=== PATIENT | female | born 1995 | race African-American/Black ===

== ENCOUNTER 2022-12-23 07:18 | Emergency (ER) | payer MEDICAID, OTHER ==
[~2022-12-23] VITALS: Ht 154.9 cm; Wt 94.3 kg
[2022-12-23 07:22] VITALS: BP 124/71; PULSE 89; RESP 16; O2SAT 98
[2022-12-23 08:15] VITALS: TEMP 98.2
[2022-12-23] MEDS ORDERED: ACETAMINOPHEN 325MG TABLET PO NR (08:15)
== END 2022-12-23 10:27 | disposition home or self-care (01) ==
LOC: ER 07:18
DX: B34.9 Viral infection, unspecified (principal); J45.909 Unspecified asthma, uncomplicated; Z88.2 Allergy status to sulfonamides; Z86.59 Personal history of other mental and behavioral disorders; Z98.890 Other specified postprocedural states; Z88.8 Allergy status to other drugs, medicaments and biological substances
CPT/HCPCS: 81025; 99282

== ENCOUNTER 2023-04-06 15:10 | Emergency (ER) | payer MEDICAID, OTHER ==
[~2023-04-06] VITALS: Ht 154.9 cm; Wt 95.0 kg
[2023-04-06 15:27] VITALS: O2SAT 97
[2023-04-06] MEDS ORDERED: NAPR220C61 MT (18:12)
[2023-04-06] MEDS: IBUPROFEN 600MG TABLET PO ONE (18:15)
[2023-04-06 18:56] VITALS: BP 128/74; PULSE 78; RESP 18; TEMP 98.1
== END 2023-04-06 19:01 | disposition home or self-care (01) ==
LOC: ER 15:10
DX: S13.4XXA Sprain of ligaments of cervical spine, initial encounter (principal); J45.909 Unspecified asthma, uncomplicated; Z88.8 Allergy status to other drugs, medicaments and biological substances; Z88.2 Allergy status to sulfonamides; Z98.890 Other specified postprocedural states; Z86.59 Personal history of other mental and behavioral disorders; V49.9XXA Car occupant (driver) (passenger) injured in unspecified traffic accident, initial encounter; Y93.89 Activity, other specified; Y92.89 Other specified places as the place of occurrence of the external cause; Y99.8 Other external cause status
CPT/HCPCS: 81025; 99282

== ENCOUNTER 2023-07-13 16:24 | Emergency (ER) | payer MEDICAID ==
[~2023-07-13] VITALS: Ht 162.6 cm; Wt 105.0 kg
[~2023-07-13 16:24] MED LIST: NAPR220C61 MT
[2023-07-13 16:26] VITALS: O2SAT 98
[2023-07-13] MEDS ORDERED: PHEN57OI23 RC (18:51)
[2023-07-13 19:04] VITALS: BP 122/70; PULSE 85; RESP 18; TEMP 98
== END 2023-07-13 19:18 | disposition home or self-care (01) ==
LOC: ER 16:24
DX: K64.8 Other hemorrhoids (principal); J45.909 Unspecified asthma, uncomplicated; Z88.8 Allergy status to other drugs, medicaments and biological substances; Z88.2 Allergy status to sulfonamides; Z98.890 Other specified postprocedural states; Z86.59 Personal history of other mental and behavioral disorders
CPT/HCPCS: 99282

== ENCOUNTER 2023-08-14 08:31 | Emergency (ER) | payer MEDICAID ==
[~2023-08-14] VITALS: Ht 172.7 cm; Wt 100.0 kg
[~2023-08-14 08:31] MED LIST changes: +PHEN57OI23 RC
[2023-08-14 08:43] VITALS: O2SAT 99
[2023-08-14 09:54] LABS: POTASSIUM 3.3 mEq/L (3.5-5.1)
[2023-08-14 09:55] LABS: CALCIUM 9.2 mg/dL (8.7-10.4)
[2023-08-14 09:56] LABS: PROTHROMBIN TIME 10.8 sec (9.6-11.0)
[2023-08-14 09:59] LABS: BASOPHILS % 0.8 % (0.0-2.0); HEMATOCRIT. 39.8 % (36.0-48.0); HEMOGLOBIN. 13.2 g/dL (12.0-16.0); LYMPHOCYTES % 33.3 % (20.0-50.0); MEAN CORPUSCULAR HEMOGLOBIN 29.2 pg (28.0-32.0); MEAN CORPUSCULAR HGB CONC 33.1 g/dL (31.0-37.0); MEAN CORPUSCULAR VOLUME 88.1 fL (81.0-99.0); MONOCYTES % 9.1 % (2.0-8.0); NEUTROPHILS % 56.8 % (40.0-76.0); PLATELET 353 x1000/uL (130-400); RED BLOOD CELL COUNT 4.51 mill/uL (4.2-5.4); RED CELL DISTRIBUTION WIDTH 13.5 % (11.6-14.6)
[2023-08-14 10:00] LABS: CREATININE 1.3 mg/dL (0.6-1.0)
[2023-08-14 10:02] LABS: LACTIC ACID 2.7 mmol/L (0.4-2.0)
[2023-08-14] MEDS: ONDANSETRON HCL 4MG/2ML INJ IV STA (10:04)
[2023-08-14] MEDS: SODIUM CHLORIDE 0.9% 1,000 ML IV ONE ×2 (10:05)
[2023-08-14 10:20] LABS: HCG SCREEN NEGATIVE
[2023-08-14] MEDS: POTASSIUM CHLORIDE 20MEQ TABLET SR PO NR (11:30)
[2023-08-14] MEDS: CEFTRIAXONE 1GM/50ML 50 ML IV NR (11:31)
[2023-08-14] MEDS ORDERED: ONDA4TAB11 PO (13:46)
[2023-08-14] MEDS ORDERED: IBUP-2030 MT (13:46)
[2023-08-14 13:50] VITALS: BP 110/77; PULSE 80; RESP 17; TEMP 98.6
== END 2023-08-14 14:22 | disposition home or self-care (01) ==
LOC: ER 09:08
DX: U07.1 COVID-19 (principal); R51.9 Headache, unspecified; R11.0 Nausea; J45.909 Unspecified asthma, uncomplicated; F32.9 Major depressive disorder, single episode, unspecified; K21.9 Gastro-esophageal reflux disease without esophagitis
CPT/HCPCS: 80048; 84703; 83605; 85025; 85610; 87040; 87804 ×2; 36415; 84145; 71045; 96361; 96365; 96375; 99285; 87426; J0696; J2405; J7030; Z7610

== ENCOUNTER 2023-10-22 13:09 | Emergency (ER) | payer MEDICAID ==
[~2023-10-22] VITALS: Ht 154.9 cm; Wt 90.0 kg
[~2023-10-22 13:09] MED LIST changes: +IBUP-2030 MT; +ONDA-239 PO
[2023-10-22 13:11] VITALS: O2SAT 100
[2023-10-22] MEDS: SODIUM CHLORIDE 0.9% 1,000 ML IV ONE (13:30)
[2023-10-22 14:07] LABS: HEMATOCRIT. 35.9 % (36.0-48.0); HEMOGLOBIN. 11.9 g/dL (12.0-16.0); MEAN CORPUSCULAR HEMOGLOBIN 29.2 pg (28.0-32.0); MEAN CORPUSCULAR HGB CONC 33.3 g/dL (31.0-37.0); MEAN CORPUSCULAR VOLUME 87.7 fL (81.0-99.0); MEAN PLATELET VOLUME 7.8 fl (7.4-10.4); PLATELET 334 x1000/uL (130-400); RED BLOOD CELL COUNT 4.09 mill/uL (4.2-5.4); RED CELL DISTRIBUTION WIDTH 13.7 % (11.6-14.6); WHITE BLOOD COUNT 5.2 x1000/uL (4.5-11.0)
[2023-10-22 14:08] LABS: DIFFERENTIAL COMMENT 1
[2023-10-22 14:09] LABS: HCG SCREEN NEGATIVE
[2023-10-22 14:14] LABS: CHLORIDE 105 mEq/L (98-107); POTASSIUM 3.8 mEq/L (3.5-5.1); SODIUM 137 mEq/L (136-145)
[2023-10-22 14:15] LABS: CARBON DIOXIDE 26 mEq/L (21-32)
[2023-10-22 14:16] LABS: CALCIUM 9.3 mg/dL (8.7-10.4)
[2023-10-22 14:17] LABS: PROTHROMBIN TIME 10.9 sec (9.6-11.0)
[2023-10-22 14:20] LABS: GLUCOSE 74 mg/dL (70-105); UREA NITROGEN BLOOD 10 mg/dL (9-23)
[2023-10-22 14:23] LABS: TROPONIN I HIGH SENSITIVITY < 4 ng/L (3.0-34)
[2023-10-22 15:21] LABS: PLATELET ESTIMATE NORMAL
[2023-10-22 17:22] VITALS: BP 108/69; PULSE 70; RESP 22; O2SAT 100
== END 2023-10-22 17:33 | disposition home or self-care (01) ==
LOC: ER 13:15
DX: T67.5XXA Heat exhaustion, unspecified, initial encounter (principal); J45.909 Unspecified asthma, uncomplicated; Z88.2 Allergy status to sulfonamides; X58.XXXA Exposure to other specified factors, initial encounter; Y93.89 Activity, other specified; Y92.89 Other specified places as the place of occurrence of the external cause; Y99.8 Other external cause status
CPT/HCPCS: 99285; 96360; 71045; 80048; 84703; 83880; 85025; 85610; 84484; 36415; 93005; J7030

== ENCOUNTER 2023-12-31 07:42 | Emergency (ER) | payer MEDICAID, OTHER ==
[~2023-12-31] VITALS: Ht 154.9 cm; Wt 82.0 kg
[2023-12-31 08:19] VITALS: O2SAT 100
[2023-12-31] MEDS ORDERED: IBUPROFEN 600MG TABLET PO ONE (08:45)
[2023-12-31 08:52] LABS: BASOPHILS % 0.7 % (0.0-2.0); EOSINOPHILS % 1.1 % (0.0-5.0); HEMATOCRIT. 36.7 % (36.0-48.0); HEMOGLOBIN. 12.3 g/dL (12.0-16.0); LYMPHOCYTES % 36.1 % (20.0-50.0); MEAN CORPUSCULAR HGB CONC 33.4 g/dL (31.0-37.0); MEAN CORPUSCULAR VOLUME 89.6 fL (81.0-99.0); MONOCYTES % 6.5 % (2.0-8.0); NEUTROPHILS % 55.6 % (40.0-76.0); PLATELET 359 x1000/uL (130-400); WHITE BLOOD COUNT 6.7 x1000/uL (4.5-11.0)
[2023-12-31 09:04] LABS: HCG SCREEN NEGATIVE
[2023-12-31 09:13] LABS: CHLORIDE 107 mEq/L (98-107); SODIUM 139 mEq/L (136-145)
[2023-12-31 09:14] LABS: CALCIUM 9.3 mg/dL (8.7-10.4); CARBON DIOXIDE 24 mEq/L (21-32)
[2023-12-31 09:19] LABS: CREATININE 0.9 mg/dL (0.6-1.0); GLUCOSE 91 mg/dL (70-105); UREA NITROGEN BLOOD 10 mg/dL (9-23)
[2023-12-31 09:20] LABS: ALANINE AMINOTRANSFERASE 11 IU/L (10-49); ALBUMIN 4.3 g/dL (3.2-4.8); ASPARTATE AMINOTRANSFERASE 13 IU/L (<34); BILIRUBIN TOTAL 0.3 mg/dL (0.1-1.0); PROTEIN TOTAL 7.4 g/dL (6.0-8.3)
[2023-12-31 09:27] LABS: BILIRUBIN DIRECT < 0.1 mg/dL (<=3.0)
[2023-12-31 10:45] LABS: CLARITY URINE CLEAR (CLEAR); COLOR URINE YELLOW (YELLOW); GLUCOSE URINE NEGATIVE (NEGATIVE); KETONES URINE NEGATIVE (NEGATIVE); LEUKOCYTE ESTERASE URINE NEGATIVE (NEGATIVE); NITRITE URINE NEGATIVE (NEGATIVE); OCCULT BLOOD URINE NEGATIVE (NEGATIVE); PH URINE 6.5 (4.5-8.0); PROTEIN URINE NEGATIVE (NEGATIVE); SPECIFIC GRAVITY URINE 1.011 (1.005-1.030); UROBILINOGEN URINE 0.2 E.U./dL (0.2-1.0)
[2023-12-31] MEDS: IBUPROFEN 600MG TABLET PO NR (11:16)
[2023-12-31] MEDS: KETOROLAC 30MG/ML VIAL IV ONE (12:10)
[2023-12-31] MEDS ORDERED: AZITHROMYCIN 500 MG TABLET PO ONE (12:45)
[2023-12-31] MEDS ORDERED: IBUP-2029 MT (13:23)
[2023-12-31 13:25] VITALS: BP 122/73; PULSE 65; RESP 16; TEMP 36.83628; O2SAT 100
[2023-12-31] MEDS ORDERED: IOHEXOL-300 100 ML BOTTLE ONE (13:36)
== END 2023-12-31 13:52 | disposition home or self-care (01) ==
LOC: ER 07:42
DX: N83.201 Unspecified ovarian cyst, right side (principal); N83.202 Unspecified ovarian cyst, left side; J45.909 Unspecified asthma, uncomplicated; Z98.890 Other specified postprocedural states; Z88.2 Allergy status to sulfonamides; Z88.8 Allergy status to other drugs, medicaments and biological substances
CPT/HCPCS: 80076; 80048; 81003; 81025; 84703; 83690; 85025; 36415; 74177; 76830; 76856; 76857; 96374; 99285; Q9967; J1885; Z7610